=== PATIENT | female | born 1960 | race Caucasian/White ===

== ENCOUNTER 2020-05-08 20:58 | Inpatient (IN) | payer BC ==
[~2020-05-08] VITALS: Ht 177.8 cm; Wt 74.1 kg
[2020-05-08] MEDS ORDERED: KETOROLAC TROMETHAMINE 30MG/ML ONE (21:43)
[2020-05-08] MEDS ORDERED: LIDOCAINE HCL 2% VISCOUS 15 ML UDCUP ONE (21:43)
[2020-05-08] MEDS ORDERED: MAG HYDROX/AL HYDROX/SIMETH ES 30 ML SUSP UDCUP ONE (21:43)
[2020-05-08] MEDS ORDERED: FAMOTIDINE/PF 20 MG/2 ML VIAL IV ONE (21:59)
[2020-05-08] MEDS ORDERED: ONDANSETRON HCL 4 MG/2 ML VIAL ONE (22:04)
[2020-05-08] MEDS ORDERED: METRONIDAZOLE 500MG/100ML BAG 100 ML ONE (23:50)
[2020-05-09] VITALS (25 sets, daily range): BP systolic 82–115; BP diastolic 52–73; PULSE 65–94; RESP 14–18; TEMP 97.3–98.8
[2020-05-09] MEDS ORDERED: MORPHINE SULFATE 2 MG/ML 1ML SYG IM PRN
[2020-05-09] MEDS ORDERED: ACETAMINOPHEN 325 MG TAB PO PRN ×2 (00:30)
[2020-05-09] MEDS ORDERED: DIPHENHYDRAMINE HCL 25 MG CAPSULE PO PRN (00:30)
[2020-05-09] MEDS ORDERED: NITROGLYCERIN 0.4 MG SL TAB SL PRN (00:30)
[2020-05-09] MEDS ORDERED: CEFAZOLIN 3GM /D5W 100ML 100 ML IV SCH (00:30)
[2020-05-09] MEDS ORDERED: ONDANSETRON HCL 4 MG/2 ML VIAL IV PRN ×2 (00:30→16:00)
[2020-05-09] MEDS ORDERED: MORPHINE SULFATE 2 MG/ML 1ML SYG ONE (01:57)
[2020-05-09] MEDS ORDERED: CEFAZOLIN SODIUM 1 GM VIAL ONE ×3 (02:21→13:45)
[2020-05-09] MEDS ORDERED: KETOROLAC TROMETHAMINE 15MG/ML ONE (02:59)
[2020-05-09] MEDS ORDERED: KETOROLAC TROMETHAMINE 15MG/ML IV SCH (03:00)
[2020-05-09] MEDS: SODIUM CHLORIDE 0.9% 1000ML 1,000 ML IV SCH ×3 (04:39→21:00)
[2020-05-09] MEDS ORDERED: METRONIDAZOLE 500MG/100ML BAG 100 ML IV SCH (06:00)
[2020-05-09] MEDS: FAMOTIDINE/PF 20 MG/2 ML VIAL IV SCH ×2 (08:08→21:01)
--- NOTE | 2020-05-09 12:00 | NUR ---
HOLDING AREA PATIENT TRANSPORTED TO HOLDING AREA BY SULMA EMMANUEL APPENDECTOMY BY DR. IRVIN.
[2020-05-09] MEDS ORDERED: LACTATED RINGERS 1000ML 1,000 ML IV ONE (12:12)
[2020-05-09] MEDS ORDERED: BUPIVACAINE/PF 0.5% 30ML VIAL ONE (12:34)
[2020-05-09] MEDS ORDERED: SCOPOLAMINE HYDROBROMIDE 1 EACH ADH..PATCH TD ONE (12:42)
[2020-05-09] MEDS ORDERED: MORPHINE SULFATE 4 MG/1ML SYG ONE (12:43)
[2020-05-09] MEDS ORDERED: ONDANSETRON HCL 4 MG/2 ML VIAL ONE (13:17)
[2020-05-09] MEDS ORDERED: DEXAMETHASONE SOD PHOSPHATE 10MG/ML 1ML VIAL ONE (13:17)
[2020-05-09] MEDS ORDERED: LIDOCAINE PF 2% 5ML ABBOJECT ONE (13:17)
[2020-05-09] MEDS ORDERED: PROPOFOL 10 MG/ML 20ML VIAL IV ONE (13:17)
[2020-05-09] MEDS ORDERED: ROCURONIUM 10MG/1ML SYR 10 MG/ML ML ONE (13:18)
[2020-05-09] MEDS ORDERED: FENTANYL CITRATE PF 50 MCG/1 ML 2ML VIAL ONE (13:18)
[2020-05-09] MEDS ORDERED: GLYCOPYRROLATE 1 MG/5 ML SYRINGE ONE (13:32)
[2020-05-09] MEDS ORDERED: NEOSTIGMINE 5MG/5ML SYR IV ONE (13:33)
[2020-05-09] MEDS ORDERED: EPHEDRINE SULFATE 50 MG/ML AMPULE ONE (13:34)
[2020-05-09] MEDS ORDERED: HETASTARCH IN 0.9 % NACL 500 ML IV ONE (13:36)
[2020-05-09] MEDS ORDERED: METRONIDAZOLE 500MG/100ML BAG 100 ML ONE (13:43)
[2020-05-09] MEDS ORDERED: MEPERIDINE-PF 25 MG/ML SYG ONE (14:45)
--- NOTE | 2020-05-09 15:25 | NUR ---
PROCEDURE REPORT RECEIVED FROM JOSELO HAIR (PACU). PATIENT S/P LAP APPENDECTOMY BY DR. IRVIN. 3 SMALL INCISIONS NOTED WITH DRESSINGS DRY AND INTACT. NO DRAINS. CONSULT FOR CLOAK ROOM ATTENDANT ( DR. NELSON ) FOR ABNORMAL OVARIES/UTERUS. PATIENT STABLE AT THIS TIME.
--- NOTE | 2020-05-09 15:45 | NUR ---
GYNE CONSULT PAGED DR. NELSON, NO ANSWER AT THIS TIME.
[2020-05-09] MEDS ORDERED: PHARMACY COMMUNICATION MISC SCH (16:00)
[2020-05-09] MEDS ORDERED: ZOSYN 3.375GM+NS 50ML 50 ML IV SCH ×2 (16:00→19:15)
[2020-05-09] MEDS: MORPHINE SULFATE 4 MG/1ML SYG IVP PRN (18:25)
[2020-05-09] MEDS ORDERED: CLINDAMYCIN 600 MG/D5% WATER 50 ML IV SCH (20:00)
--- NOTE | 2020-05-09 20:00 | NUR ---
assessment note awake, alert, ox3, no sob, no c.o pain at this time, encourAGE DEEP BREATHING EXERCISES, DRESSING ABD X3 , INCISION AROUND UMBILICUS WITH SLIGHT DRAINAGE OF SEROS SANGUINOUS DRAINAGE, REINFORCED DRESSING, TEACH PATIENT PLAN OF CARE AND EXPECTED OUTCOME, PATIENT VERBALIZES UNDERSTANDING VIA TEACH BACK
[2020-05-09] MEDS: ACETAMINOPHEN-CODEINE 300/30MG TAB PO PRN (21:06)
[2020-05-10] VITALS: PULSE 65; RESP 20; TEMP 98.1
[2020-05-10] MEDS: ACETAMINOPHEN-CODEINE 300/30MG TAB PO PRN ×2 (01:53→22:37)
[2020-05-10 03:34] VITALS: BP 90/57; PULSE 66; RESP 20; TEMP 97.9
[2020-05-10] MEDS: CLINDAMYCIN 600 MG/D5% WATER 50 ML IV SCH ×3 (05:14→17:36)
[2020-05-10] MEDS: SODIUM CHLORIDE 0.9% 1000ML 1,000 ML IV SCH ×2 (05:14→17:36)
[2020-05-10] MEDS: MORPHINE SULFATE 4 MG/1ML SYG IVP PRN ×3 (05:20→19:20)
[2020-05-10 08:09] VITALS: BP 107/70; PULSE 53; RESP 16; TEMP 97.3
[2020-05-10] MEDS: FAMOTIDINE/PF 20 MG/2 ML VIAL IV SCH ×2 (08:48→19:19)
[2020-05-10 11:32] VITALS: BP 109/62; PULSE 59; RESP 16; TEMP 98
--- NOTE | 2020-05-10 12:41 | NUR ---
CABLE STRANDER DR. MICHELLE IN TO SEE PATIENT. NO NEW ORDERS TODAY. WILL FOLLOW OUTPATIENT IN HIS OFFICE.
--- NOTE | 2020-05-10 13:22 | NUR ---
DCP CM spoke to pt discussed dc plans. Pt is independent prior to admission, lives at home w/spouse. Denies any equipments/services. Feels safe to go back home, still drives and work, spouse able to assist with transportation and needs as necessary. DC plan to home once stable. CM to cont to follow up. Addendum: 05/10/20 at 1323 by OSMAR GREEN LVN CM Amended: Links added.
[2020-05-10 16:50] VITALS: BP 105/69; PULSE 60; RESP 20; TEMP 97.6
[2020-05-10 19:43] VITALS: BP 98/70; PULSE 70; RESP 20; TEMP 98.7
[2020-05-11] VITALS (9 sets, daily range): BP systolic 99–115; BP diastolic 56–75; PULSE 60–86; RESP 16–20; TEMP 98–98.6
[2020-05-11] MEDS: CLINDAMYCIN 600 MG/D5% WATER 50 ML IV SCH ×4 (00:40→19:25)
[2020-05-11] MEDS: SODIUM CHLORIDE 0.9% 1000ML 1,000 ML IV SCH ×3 (00:41→20:04)
[2020-05-11] MEDS: MORPHINE SULFATE 4 MG/1ML SYG IVP PRN (02:30)
[2020-05-11] MEDS: ACETAMINOPHEN-CODEINE 300/30MG TAB PO PRN ×2 (06:00→15:08)
[2020-05-11] MEDS ORDERED: DIATR MEGLU/DIATRIZOATE SODIUM 30 ML BOTTLE ONE (07:50)
[2020-05-11] MEDS ORDERED: IOHEXOL-350 75 ML VIAL IV ONE (10:31)
[2020-05-11] MEDS: FAMOTIDINE/PF 20 MG/2 ML VIAL IV SCH ×2 (11:15→20:04)
[2020-05-11] MEDS ORDERED: ALBUTEROL SULFATE 0.042% 1.25 MG/3 ML INH IH ONE (19:37)
[2020-05-11] MEDS ORDERED: ALBUTEROL SULFATE 0.083% 2.5 MG/3 ML INH IH ONE (19:43)
[2020-05-11] MEDS: ALBUTEROL SULFATE 0.083% 2.5 MG/3 ML INH IH SCH (23:10)
[2020-05-12] MEDS: MORPHINE SULFATE 4 MG/1ML SYG IVP PRN (00:12)
[2020-05-12] MEDS: CLINDAMYCIN 600 MG/D5% WATER 50 ML IV SCH ×2 (00:12→06:03)
[2020-05-12 03:15] VITALS: BP 100/58; PULSE 68; RESP 17; TEMP 97.9
[2020-05-12 06:35] VITALS: PULSE 82; RESP 16
[2020-05-12] MEDS: ALBUTEROL SULFATE 0.083% 2.5 MG/3 ML INH IH SCH ×2 (06:35→11:34)
[2020-05-12] MEDS: SODIUM CHLORIDE 0.9% 1000ML 1,000 ML IV SCH (08:00)
[2020-05-12 08:01] VITALS: BP 105/67; PULSE 72; RESP 18; TEMP 98.1
[2020-05-12] MEDS: FAMOTIDINE/PF 20 MG/2 ML VIAL IV SCH (09:10)
--- NOTE | 2020-05-12 12:00 | NUR ---
NOTE DISCHARGE INSTRUCTIONS GIVEN TO PATIENT AT THIS TIME. SHE VERBALIZED UNDERSTANDING. REFER TO DC SUMMARY FOR DETAILS. DR EDNT SPOKE TO PATIENT REGARDING USE OF MASK AND NEEDS TO CONTINUE USING HER INCENTIVE SPIROMETRY TO PREVENT COMPLICATIONS. SHE HAS BEEN SATURATING 98% ON ROOM AIR. SHE RECEIVED NEBS DURING THE NIGHT. BBS CLEAR THIS AM AND SHE IS STABLE TO GO NOW. DRESSING TO ABDOMEN D/I WITH SLIGHT SEROUS SANGUINOUS DRAINAGE, INSTRUCTIONS GIVEN REGARDING INCISION CARE.
== END 2020-05-12 12:30 | disposition home or self-care (01) | DRG 342 ==
LOC: EDH 20:58 → EDHIP 23:37 → 3DH 05-09 02:35
PROVIDERS: ADMIT Internal Medicine; ATTEND Internal Medicine
PROC: 0DTJ4ZZ Resection of Appendix, Percutaneous Endoscopic Approach (ICD-10-PCS; principal; 2020-05-09 13:23)
DX: K35.80 Unspecified acute appendicitis (principal); N39.0 Urinary tract infection, site not specified; I49.3 Ventricular premature depolarization; K42.9 Umbilical hernia without obstruction or gangrene; K57.30 Diverticulosis of large intestine without perforation or abscess without bleeding; K59.00 Constipation, unspecified; R06.02 Shortness of breath; N28.9 Disorder of kidney and ureter, unspecified; Z20.828 Contact with and (suspected) exposure to other viral communicable diseases; Z80.1 Family history of malignant neoplasm of trachea, bronchus and lung; Z80.8 Family history of malignant neoplasm of other organs or systems; Z80.7 Family history of other malignant neoplasms of lymphoid, hematopoietic and related tissues; Z80.0 Family history of malignant neoplasm of digestive organs; Z98.891 History of uterine scar from previous surgery